=== PATIENT | female | born 1975 | race Two or more races ===

== ENCOUNTER → 2024-08-05 | Outpatient (CLI) | payer BC, SELFPAY ==
--- NOTE | 2024-08-05 09:38 | XR_ITS ---
Examination: Lumbar spine 3 views Technique one AP lateral coned lateral lower lumbar spine 3 views Exam date and time: August 05, 2024 0953 hours Comparison May 27, 2017 INDICATIONS: Low back pain beginning one month ago radiating down the right leg. FINDINGS: Moderate osteopenia Lumbar dextroscoliosis 10 degrees Grade 2 spondylolisthesis L5 on S1 Advanced degenerative disc disease L5-S1 IMPRESSION: Grade 2 spondylolisthesis L5 on S1 Advanced degenerative disc disease L5-S1 Consider standing flexion and extension lateral views cervical spine to assess abnormal mobility at the L5-S1 level
== END | disposition home or self-care (01) ==
PROVIDERS: PCP Nurse Practitioner Family; Referring Provider Nurse Practitioner Family; Visit Provider Nurse Practitioner Family
DX: M43.17 Spondylolisthesis, lumbosacral region (principal); M51.379 Other intervertebral disc degeneration, lumbosacral region without mention of lumbar back pain or lower extremity pain
CPT/HCPCS: 72100

== ENCOUNTER → 2024-12-07 | Outpatient (CLI) | payer BC, SELFPAY ==
[2024-12-07 09:35] LABS: Basophils % (Auto) 0 % (0-2.5); Eosinophils # (Auto) 0.2 Thou/mm3 (0.0-0.5); Eosinophils % (Auto) 4 % (0-10); Hematocrit 40.2 % (36.0-46.0); Hemoglobin 13.3 g/dL (12.0-16.0); Immature Granulocytes % (Auto) 0 % (0-0); Immature Granulocytes Auto 0.01 Thou/mm3 (0.00-0.00); Lymphocytes # (Auto) 1.6 Thou/mm3 (1.0-4.8); Lymphocytes % (Auto) 37 % (10-50); Mean Corpuscular HGB Conc 33.1 g/dl (31.0-37.0); Mean Corpuscular Hemoglobin 28.5 pg (25.0-35.0); Mean Corpuscular Volume 86 fL (80-100); Monocytes # (Auto) 0.5 Thou/mm3 (0.0-0.8); Monocytes % (Auto) 10 % (0-12); Neutrophils # (Auto) 2.1 Thou/mm3 (1.8-7.7); Neutrophils % (Auto) 49 % (37-80); Nucleated Red Blood Cell % 0 /100 WBC (0); Platelet Count 271 Thou/mm3 (140-440); Red Blood Count 4.66 Miln/mm3 (4.00-5.20); White Blood Count 4.3 Thou/mm3 (3.6-11.0)
[2024-12-07 09:43] LABS: Glucose Estimated Average 100 mg/dL (80-131); Hemoglobin A1C 5.1 % Hgb (4.8-6.0)
[2024-12-07 09:51] LABS: Alanine Aminotransferase 11 U/L (10-49); Albumin, Serum 4.5 gm/dL (3.5-5.0); Albumin/Globulin Ratio 1.6 (1.2-2.2); Alkaline Phosphatase 61 U/L (46-116); Anion Gap 6 (7-16); Aspartate Amino Transferase 18 U/L (0-34); BUN/Creatinine Ratio 18 Ratio (12-20); Bilirubin,Total 0.5 mg/dL (0.3-1.2); Blood Urea Nitrogen 14 mg/dL (9-23); Calcium 9.1 mg/dL (8.3-10.6); Calcium (Corrected) 9.1 mg/dL (8.5-10.1); Carbon Dioxide 27.7 mMol/L (20.0-31.0); Cardiac Risk Estimate 6.1 RATIO (3.7-5.6); Chloride 109 mMol/L (98-107); Cholesterol 236 mg/dL (132-200); Creatinine (Component) 0.8 mg/dL (0.6-1.3); Globulin 2.9 gm/dL (2.3-3.5); Glucose 91 mg/dL (74-106); HDL Cholesterol 39 mg/dL (40-60); LDL Cholesterol,Calculated 182 mg/dL (0-130); Osmolality,Calculated 285 (275-295); Potassium 3.8 mMol/L (3.4-5.1); Sodium 143 mMol/L (136-145); Thyroid Stimulating Hormone 1.37 uIU/mL (0.55-4.78); Total Protein 7.4 gm/dL (5.7-8.2); Triglycerides 73 mg/dL (30-150); eGFR > 60 See Note
[2024-12-07 10:22] LABS: Syphilis Nonreactive (Nonreactive)
[2024-12-07 10:43] LABS: Hepatitis A Antibody IgM Non Reactive (Non React); Hepatitis B Core Antibody IgM Non Reactive (Non React); Hepatitis B Surface Antigen Non Reactive (Non React); Hepatitis C Antibody Non Reactive (Non React)
[2024-12-07 16:43] LABS: Chlamydia trachomatis PCR Negative (Not Detect); Neisseria Gonorrhoeae DNA PCR Negative (Not Detect); Trichomonas Negative (Negative)
[2024-12-12 06:46] LABS: HIV Ag/Ab, 4th Gen NON-REACTIVE
== END | disposition home or self-care (01) ==
LOC: COPL 08:35
PROVIDERS: PCP Internal Medicine; Referring Provider Internal Medicine; Visit Provider Internal Medicine
DX: E78.2 Mixed hyperlipidemia (principal); I10 Essential (primary) hypertension; R53.83 Other fatigue; Z11.3 Encounter for screening for infections with a predominantly sexual mode of transmission; Z13.6 Encounter for screening for cardiovascular disorders; Z79.899 Other long term (current) drug therapy; Z83.3 Family history of diabetes mellitus
CPT/HCPCS: 36415; 80053; 80061; 80074; 83036; 84443; 85025; 86780; 87389; 87491; 87591; 87661

== ENCOUNTER → 2025-01-27 | Outpatient (CLI) | payer BC, SELFPAY ==
[2025-01-27 11:59] LABS: Vitamin B12 441 pg/mL (211-911); Vitamin D 25 Hydroxy Total 12.4 ng/mL (7.3-40.2)
== END | disposition home or self-care (01) ==
LOC: COPL 10:30
PROVIDERS: PCP Nurse Practitioner Family
DX: Z00.01 Encounter for general adult medical examination with abnormal findings (principal); Z79.899 Other long term (current) drug therapy
CPT/HCPCS: 36415; 82306; 82607

== ENCOUNTER → 2025-03-24 | Outpatient (CLI) | payer BC, SELFPAY ==
--- NOTE | 2025-03-24 08:30 | XR_ITS ---
Examination: Screening digital mammography, bilateral Computer aided detection 3-D breast Tomosynthesis, bilateral Date and time of exam: April 03, 2025 0821 hours Compared to mammograms dating to January 04, 2016 Indication: Screening Technique: Nonmagnified MLO, CC views of the breasts to been obtained, reconstructed from 3-D Tomosynthesis images. R2 computer aided detection program utilized for evaluation of suspicious masses and/or abnormal calcifications. 3-D Tomosynthesis images obtained. Findings: Scattered areas of fibroglandular density No definite suspicious masses Please see the breast sonogram report, right, April 16, 2023 indicating 12:00 nodule right breast 12 mm Impression: BI-RADS Category 0: Incomplete: Need additional imaging evaluation Recommend bilateral breast sonography follow-up
== END | disposition home or self-care (01) ==
LOC: CDIM 08:12
DX: Z12.31 Encounter for screening mammogram for malignant neoplasm of breast (principal); R92.8 Other abnormal and inconclusive findings on diagnostic imaging of breast
CPT/HCPCS: 77063; 77067

== ENCOUNTER → 2025-06-30 | Outpatient (CLI) | payer BC, SELFPAY ==
[2025-06-30 10:55] LABS: Vitamin D 25 Hydroxy Total 28.8 ng/mL (7.3-40.2)
[2025-06-30 11:06] LABS: Cardiac Risk Estimate 5.8 RATIO (3.7-5.6); Cholesterol 208 mg/dL (132-200); HDL Cholesterol 36 mg/dL (40-60); LDL Cholesterol,Calculated 161 mg/dL (0-130); Triglycerides 56 mg/dL (30-150)
== END | disposition home or self-care (01) ==
LOC: COPL 08:50
PROVIDERS: PCP Internal Medicine
DX: E55.9 Vitamin D deficiency, unspecified (principal); E78.2 Mixed hyperlipidemia; I10 Essential (primary) hypertension
CPT/HCPCS: 36415; 80061; 82306

== ENCOUNTER → 2025-08-16 | Outpatient (CLI) | payer BC, SELFPAY ==
--- NOTE | 2025-08-16 08:45 | XR_ITS ---
Examination: Breast ultrasound complete, bilateral Date and time of exam: August 16, 2025, 0844 hours INDICATIONS: Right parasternal, April 16, 2023 12:00 nodule 12 mm Technique: Real-time grayscale ultrasonographic imaging bilateral breasts, including all 4 quadrants as well as nipple retroareolar and axillary regions. Findings: Sonographic images right breast 12:00 cyst 5 x 6 mm 12:00 nodule with lobular margins 5 x 4 mm 2:00 nodule circumscribed 4 x 4 mm 11:00 nodule circumscribed 8 x 7 mm Sonographic images left breast 1:00 cyst 6 x 8 mm 3:00 nodule circumscribed 6 x 6 mm Multiple bilateral cysts smaller IMPRESSION: BI-RADS Category 3: Probably benign findings Continued 6-month bilateral breast sonography follow-up is needed to document stability of nodules described above
== END | disposition home or self-care (01) ==
DX: N63.25 Unspecified lump in the left breast, overlapping quadrants (principal); N63.15 Unspecified lump in the right breast, overlapping quadrants; N63.11 Unspecified lump in the right breast, upper outer quadrant
CPT/HCPCS: 76641